=== PATIENT | female | born 1945 | race American Indian/Alaskan Native ===

== ENCOUNTER 2017-05-03 09:54 | Outpatient (CLI) | payer MEDICARE ==
--- NOTE | 2017-05-03 10:14 | XRay Report ---
Left wrist 3 views: History: Wrist pain. Findings: The radiocarpal joint and intercarpal joints appears unremarkable. No soft tissue calcification or periosteal reaction. Arthritic changes in the first carpometacarpal joint. Impression: Arthritic changes first carpometacarpal joint.
== END 2017-05-03 09:55 | disposition home or self-care (01) ==
LOC: SPVIMAG 09:54
PROVIDERS: ATTEND Orthopaedic Surgery Sports Medicine
DX: M18.9 Osteoarthritis of first carpometacarpal joint, unspecified (principal)